=== PATIENT | female | born 1980 | race African-American/Black ===

== ENCOUNTER 2016-04-22 10:27 | Emergency (ER) | payer MEDICAID ==
[~2016-04-22] VITALS: Ht 162.6 cm; Wt 78.0 kg
[~2016-04-22 10:27] MED LIST: CLON0.1T PO; HYDR25TA5 PO; LISI-515 PO; SERO300T PO
[2016-04-22 10:30] VITALS: BP 126/79; PULSE 52; RESP 16; TEMP 97.7; O2SAT 98
[2016-04-22] MEDS ORDERED: ATEN25TA PO (11:18)
[2016-04-22] MEDS ORDERED: CLON0.2T PO (11:18)
[2016-04-22] MEDS ORDERED: AMLO10TA2 PO (11:18)
--- NOTE | 2016-04-22 11:58 | PD ---
HPI Chief Complaint: Oral / Dental Pain or Problem Time Seen by Provider: 11:58 Travel History International Travel<30 days: No Contact w/Intl Traveler<30days: No Traveled to known affect area: No History of Present Illness HPI 36-year-old female presents to the emergency department with 2 complaints. Her first complaint is left lower tooth pain 1-1/2 weeks. Denies facial edema, erythema. Denies dental trauma. Denies fever, chills, nausea, vomiting. Has tried BC powder and Motrin with no relief of pain. Pain is worse with talking. Pain is causing her to have a headache which she has history of headaches and symptoms are similar to past headaches. Her second complaint is midsternal chest pain 5 days. Chest pain is constant. Rates 8/10. Aching in nature. No change in chest pain with activity. Reports some shortness of breath but says that she has had breath "all the time." Reports shortness of breath for multiple years and used to use Spiriva back in 2008 for "upper respiratory problems." Has also been told her shortness of breath can be related to her anemia. Denies hemoptysis. Denies history of PE or DVT. Denies leg edema. Denies oral contraceptive. Denies recent travel, hospitalization, surgery. Denies family cardiac history. Denies personal cardiac history. Reports history of hypertension and currently takes medications. Smokes black and milds daily. Allergies to contrast media and Septra. Primary care provider is Dr. Becerra. She has an appointment with Dr. Becerra in May 22. History of hypertension, headaches, anemia. No other modifying factors or associated signs and symptoms. PFSH Past Medical History Asthma: Yes Blood Disorders: No Bipolar Disorder: Yes Anxiety: Yes Depression: Yes Cancer: No Cardiovascular Problems: Yes (HTN, OUT OF SCRIPTS) Chemotherapy: No COPD: Yes Diabetes: Yes (GESTATIONAL) Diminished Hearing: No Endocrine: No Gastrointestinal Disorders: No Genitourinary: No Hypertension: Yes Immune Disorder: No Musculoskeletal: No Neurologic: No Psychiatric: No Reproductive: No Respiratory: No Integumentary: Yes Radiation Therapy: No PNEUMOCCOCAL Vaccine (Year): 2 : 1 Para: 1 Past Surgical History Abdominal Surgery: Yes (UMBILICAL HERNIA REPAIR) AICD: No Arteriovenous Shunt: No Cardiac Surgery: No Section: Yes (01/26/07) Ear Surgery: No Endocrine Surgery: No Eye Surgery: No Genitourinary Surgery: No Gynecologic Surgery: No Insulin Pump: No Joint Replacement: No Neurologic Surgery: No Oral Surgery: No Pacemaker: No Thoracic Surgery: No Other Surgery: Yes (BACK;PYLONIDAL CYST) Social History Alcohol Use: Yes (OCC) Tobacco Use: Yes (OCC) Substance Use: No Allergies-Medications (Allergen,Severity, Reaction): Coded Allergies: Contrast Media (Verified Allergy, Severe, HIVES, 04/22/16) Septra (Verified Allergy, Severe, RESPIRATORY PROBLEMS, 04/22/16) Reported Meds & Prescriptions Reported Meds & Active Scripts Active Hydrochlorothiazide 25 Mg Tab 25 Mg PO DAILY Reported Amlodipine (Amlodipine Besylate) 10 Mg Tab 10 Mg PO DAILY Atenolol 25 Mg Tab 12.5 Mg PO DAILY Clonidine (Clonidine HCl) 0.2 Mg Tab 0.2 Mg PO BID Seroquel (Quetiapine Fumarate) 300 Mg Tab 300 Mg PO DAILY Review of Systems Except as stated in HPI: all other systems reviewed are Neg Physical Exam Narrative GENERAL: Well-nourished, well-developed female patient, in no acute distress; afebrile, nontoxic-appearing SKIN: Warm and dry. HEAD: Atraumatic. Normocephalic. No facial erythema or edema. No lymphadenopathy. EYES: Pupils equal and round. No scleral icterus. No injection or drainage. ENT: Mucosa pink and moist. No erythema or exudates. No uvular edema. No uvular , palatal, or tonsillar deviation. Airway patent. Nasal turbinates appear normal without nasal blood, purulent drainage or septal hematoma. EARS: Bilateral pinnae and external canals appear within normal limits. Bilateral tympanic membranes without erythema, dullness or perforation. MOUTH: Mucous membranes moist, no lesions, tongue and gums appear normal. Left lower second molar with tenderness on palpation; surrounding gingiva is without erythema, edema. No obvious abscess noted. NECK: Trachea midline. No JVD. No lymphadenopathy. CHEST: No reproducible chest wall tenderness; no crepitance or deformity. No retractions or use of accessory muscles. CARDIOVASCULAR: Regular rate and rhythm. No murmur appreciated. RESPIRATORY: No accessory muscle use. Clear to auscultation. Breath sounds equal bilaterally. GASTROINTESTINAL: Abdomen soft, non-tender, nondistended. Hepatic and splenic margins not palpable. Bowel sounds are active 4 quadrants. MUSCULOSKELETAL: No obvious deformities. No clubbing. No cyanosis. No edema. NEUROLOGICAL: Awake and alert. Oriented 3. No obvious cranial nerve deficits. Motor grossly within normal limits. Normal speech. Moves all extremities. 5/5 strength to all extremities. PSYCHIATRIC: Appropriate mood and affect; insight and judgment normal. Data Data Last Documented VS Vital Signs Date Time Temp Pulse Resp B/P Pulse Ox O2 Delivery O2 Flow Rate FiO2 04/22/16 13:30 46 16 156/88 98 Room Air 04/22/16 10:30 97.7 Orders Electrocardiogram (04/22/16 11:58) Basic Metabolic Panel (Bmp) (04/22/16 11:58) Complete Blood Count With Diff (04/22/16 11:58) Magnesium (Mg) (04/22/16 11:58) Prothrombin Time / Inr (Pt) (04/22/16 11:58) Act Partial Throm Time (Ptt) (04/22/16 11:58) Troponin I (04/22/16 11:58) Chest, Single Ap (04/22/16 11:58) Ecg Monitoring (04/22/16 11:58) Iv Access Insert/Monitor (04/22/16 11:58) Oximetry (04/22/16 11:58) Oxygen Administration (04/22/16 11:58) Aspirin Chew (Aspirin Chew) (04/22/16 12:00) Sodium Chloride 0.9% Flush (Ns Flush) (04/22/16 12:00) Ketorolac Inj (Toradol Inj) (04/22/16 13:00) Labs Laboratory Tests Test 04/22/16 13:15 White Blood Count 5.0 TH/MM3 Red Blood Count 4.18 MIL/MM3 Hemoglobin 10.1 GM/DL Hematocrit 30.1 % Mean Corpuscular Volume 72.1 FL Mean Corpuscular Hemoglobin 24.2 PG Mean Corpuscular Hemoglobin 33.5 % Concent Red Cell Distribution Width 19.8 % Platelet Count 387 TH/MM3 Mean Platelet Volume 7.4 FL Neutrophils (%) (Auto) 43.5 % Lymphocytes (%) (Auto) 43.0 % Monocytes (%) (Auto) 8.5 % Eosinophils (%) (Auto) 3.2 % Basophils (%) (Auto) 1.8 % Neutrophils # (Auto) 2.2 TH/MM3 Lymphocytes # (Auto) 2.1 TH/MM3 Monocytes # (Auto) 0.4 TH/MM3 Eosinophils # (Auto) 0.2 TH/MM3 Basophils # (Auto) 0.1 TH/MM3 CBC Comment AUTO DIFF Differential Comment AUTO DIFF CONFIRMED Prothrombin Time 10.4 SEC Prothromb Time International 0.9 RATIO Ratio Activated Partial 28.0 SEC Thromboplast Time Sodium Level 142 MEQ/L Potassium Level 3.5 MEQ/L Chloride Level 108 MEQ/L Carbon Dioxide Level 29.5 MEQ/L Anion Gap 5 MEQ/L Blood Urea Nitrogen 13 MG/DL Creatinine 0.84 MG/DL Estimat Glomerular Filtration 93 ML/MIN Rate Random Glucose 86 MG/DL Calcium Level 9.1 MG/DL Magnesium Level 2.3 MG/DL Troponin I 0.02 NG/ML [facility] Medical Decision Making Medical Screen Exam Complete: Yes Emergency Medical Condition: Yes Medical Record Reviewed: Yes Differential Diagnosis Dentalgia, dental abscess, DC, ACS, noncardiac chest pain, asthma, less likely PE Narrative Course 36-year-old female came in with 2 complaints. First complaint is dentalgia. Second complaint is chest pain. Patient placed on cardiopulmonary monitor. IV site obtained. Chest x-ray and EKG ordered. Labs ordered. 1259: Chest x-ray no acute disease. 1327: EKG was sinus bradycardia; no ST elevation or depression. 1430: CBC with anemia which is consistent with her past levels. BMP unremarkable. Troponin is 0.02; consistent with last troponin of 0.03. Discussed the patient with my attending physician, Dr. Maldonado, and he recommended to admit the patient to chest pain center. The patient will be admitted to chest pain center for further treatment and evaluation. 1432: Patient does not want to be admitted for chest pain observation and is leaving AMA. AMA: The risks of leaving against medical advice without further evaluation treatment were discussed with the patient. These risks include cardiac dysfunction, cardiac dysrhythmia, possible heart attack, possible stroke or . The patient indicated understanding of these risks and appeared to have the capacity to make this decision. Diagnosis Primary Impression: Left against medical advice Med/Other Pt SpecificInfo: Prescription(s) given Scripts Chlorhexidine Gluconate (Mouth) Liq (Peridex Liq)0.12% Soln15 Ml SWISH-SPIT BID 10 Days Ref 0 Prov:Janice Barfield 04/22/16 Ibuprofen 800 Mg Gpo793 Mg PO Q6HR PRN (PAIN) #30 TAB Ref 0 Prov:Janice Barfield 04/22/16 Amoxicillin 500 Mg Rpi523 Mg PO BID 10 Days Ref 0 Prov:Janice Barfield 04/22/16 Disposition: 07 AGAINST MEDICAL ADVICE Jnaice Barfield Apr 22, 2016 11:58
[2016-04-22] MEDS ORDERED: SODIUM CHLORIDE 0.9% FLUSH 5 ML FLUSH IVF PRN (12:00)
[2016-04-22] MEDS ORDERED: ASPIRIN 81 MG CHEW TAB PO ONE (12:00)
--- NOTE | 2016-04-22 12:56 | RADRPT ---
EXAM DATE/TIME: 04/22/2016 12:34 [facility] COMPARISON: CHEST SINGLE AP, September 02, 2015, 16:17. INDICATIONS : Tooth ache and headache. MEDICAL HISTORY : None. SURGICAL HISTORY : None. ENCOUNTER: Initial ACUITY: 3 days PAIN SCORE: 10/10 LOCATION: Bilateral chest FINDINGS: A single view of the chest demonstrates the lungs to be symmetrically aerated without evidence of mas s, infiltrate or effusion. The cardiomediastinal contours are unremarkable. Osseous structures are intact. CONCLUSION: No acute disease. Judah Clements MD FACR on April 22, 2016 at 12:54 Board Certified Radiologist. This report was verified electronically.
[2016-04-22] MEDS ORDERED: KETOROLAC TROMETHAMINE 30 MG/ML (IVP) VIAL IV PUSH ONE (13:00)
[2016-04-22 13:30] VITALS: BP 156/88; PULSE 46; RESP 16; O2SAT 98
[2016-04-22 13:33] LABS: AUTOMATED NEUTROPHIL # 2.2 TH/MM3 (1.8-7.7); BASOPHIL # 0.1 TH/MM3 (0-0.2); BASOPHIL % 1.8 % (0.0-2.0); EOSINOPHIL # 0.2 TH/MM3 (0-0.4); EOSINOPHIL % 3.2 % (0.0-4.0); HEMATOCRIT 30.1 % (35.0-46.0); LYMPHOCYTE # 2.1 TH/MM3 (1.0-4.8); MEAN CELL VOLUME 72.1 FL (80.0-100.0); MEAN CORPUSCULAR HEMOGLOBIN 24.2 PG (27.0-34.0); MEAN CORPUSCULAR HGB CONC 33.5 % (32.0-36.0); MONO % 8.5 % (0.0-8.0); NEUT % 43.5 % (16.0-70.0); PLATELET COUNT 387 TH/MM3 (150-450); RED BLOOD COUNT 4.18 MIL/MM3 (4.00-5.30); RED CELL DISTRIBUTION WIDTH 19.8 % (11.6-17.2)
[2016-04-22 13:34] LABS: HEMO FLAGS AUTO DIFF
[2016-04-22 13:47] LABS: INTERNATIONAL NORMALIZED RATIO 0.9 RATIO; PROTHROMBIN TIME - PATIENT 10.4 SEC (9.8-11.6)
[2016-04-22 13:55] LABS: BICARBONATE 29.5 MEQ/L (21.0-32.0); MAGNESIUM 2.3 MG/DL (1.5-2.5); POTASSIUM 3.5 MEQ/L (3.5-5.1)
[2016-04-22 14:12] LABS: SCAN/DIFF AUTO DIFF CONFIRMED
[2016-04-22] MEDS ORDERED: PERI0.126 SWISH-SPIT (14:49)
[2016-04-22] MEDS ORDERED: IBUP800T23 PO (14:49)
[2016-04-22] MEDS ORDERED: AMOX500C PO (14:49)
[2016-04-22 14:55] VITALS: BP 144/72
--- NOTE | 2016-04-23 16:56 | EKG ---
Date Performed: 04/22/2016 Time Performed: 13:25:40 PTAGE: 36 years EKG: SINUS BRADYCARDIA NONSPECIFIC T-WAVE ABNORMALITY Since previous tracing, no significant mil nge noted BORDERLINE ECG PREVIOUS TRACING : 09/02/2015 16.49 DOCTOR: Car Carson Interpretating Date/Time 04/23/2016 16:56:02
== END 2016-04-22 15:02 | disposition left against medical advice (07) ==
LOC: NEPB 10:27 → NEPE 15:02
DX: R07.9 Chest pain, unspecified (principal); R94.31 Abnormal electrocardiogram [ECG] [EKG]; I10 Essential (primary) hypertension; J44.9 Chronic obstructive pulmonary disease, unspecified; Z72.0 Tobacco use
CPT/HCPCS: 71010; 80048; 83735; 84484; 85025; 85610; 85730; 93005; 96374; 99285; J1885

== ENCOUNTER 2016-06-01 10:53 | Emergency (ER) | payer MEDICAID ==
[~2016-06-01] VITALS: Ht 162.6 cm; Wt 77.5 kg
[~2016-06-01 10:53] MED LIST changes: +AMLO10TA2 PO; +AMOX500C PO; +ATEN25TA PO; -CLON0.1T PO; +CLON0.2T PO; +IBUP800T23 PO; -LISI-515 PO; +PERI0.126 SWISH-SPIT
[2016-06-01 10:55] VITALS: BP 168/90; PULSE 78; RESP 15; TEMP 98.3; O2SAT 98
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
[2016-06-01] MEDS ORDERED: BUTA1CAP PO (11:13)
[2016-06-01] MEDS ORDERED: ACETAMIN 325 MG/BUTALBITAL 50 MG/CAFFEINE 40 MG TAB PO ONE (11:15)
== END 2016-06-01 12:14 | disposition home or self-care (01) ==
LOC: NETRI 10:53
DX: G44.229 Chronic tension-type headache, not intractable (principal); K08.89 Other specified disorders of teeth and supporting structures; K03.81 Cracked tooth; I10 Essential (primary) hypertension; Z72.0 Tobacco use; Z87.09 Personal history of other diseases of the respiratory system; Z86.59 Personal history of other mental and behavioral disorders; Z86.79 Personal history of other diseases of the circulatory system; Z87.2 Personal history of diseases of the skin and subcutaneous tissue
CPT/HCPCS: 99283

== ENCOUNTER 2016-07-12 10:58 | Emergency (ER) | payer MEDICAID ==
[~2016-07-12] VITALS: Ht 162.6 cm; Wt 77.5 kg
[~2016-07-12 10:58] MED LIST changes: -AMOX500C PO; +BUTA1CAP PO; -HYDR25TA5 PO; -IBUP800T23 PO; -PERI0.126 SWISH-SPIT; -SERO300T PO
[2016-07-12 11:00] VITALS: BP 170/100; PULSE 66; RESP 24; TEMP 98.5; O2SAT 99
[2016-07-12] MEDS ORDERED: SODIUM CHLOR 0.9% 1000 ML INJ 1,000 ML IV ONE (11:30)
[2016-07-12] MEDS ORDERED: SODIUM CHLORIDE 0.9% FLUSH 10 ML FLUSH IVF PRN (11:30)
[2016-07-12] MEDS ORDERED: MECLIZINE HCL 25 MG TAB PO ONE (11:30)
[2016-07-12] MEDS ORDERED: ONDANSETRON HCL 4 MG/2 ML VIAL IVP ONE (11:30)
--- NOTE | 2016-07-12 11:36 | PD ---
HPI Chief Complaint: Dizziness Time Seen by Provider: 11:32 Travel History International Travel<30 days: No Contact w/Intl Traveler<30days: No Traveled to known affect area: No History of Present Illness HPI 36-year-old female presents to the emergency department for evaluation of lower abdominal cramping, heavy menstrual cycle, dizziness that started yesterday. She states the dizziness the abdominal cramping started with her menstrual cycle started. Patient denies any headaches. No chest pain or shortness of breath. Patient states that she was working at [employer] today and felt like she might pass out, but did not. She states she was working in a very hot environment. The patient states that if she lays still, the symptoms go away. The dizziness resumes with movement and states it feels like the room is spinning around her. Patient denies any abnormal vaginal discharge and states she is not sexually active. She denies any urinary symptoms. Patient states that every time she gets her menstrual cycle, gets heavier and heavier. She states that she has used 6 pads today. She states that she has not followed up with a contour stitcher for this. She states that she has never had a blood transfusion at this point, but was borderline at one point. She does have a history of hypertension and is on clonidine, amlodipine, atenolol. She reports one episode of vomiting yesterday, none today. PFSH Past Medical History Asthma: Yes Blood Disorders: No Bipolar Disorder: Yes Anxiety: Yes Depression: Yes Cancer: No Cardiovascular Problems: Yes (HTN) Chemotherapy: No COPD: Yes Diabetes: Yes (GESTATIONAL) Patient Takes Glucophage: No Diminished Hearing: No Endocrine: No Gastrointestinal Disorders: No Genitourinary: No Hypertension: Yes Immune Disorder: No Musculoskeletal: No Neurologic: Yes Psychiatric: No Reproductive: No Respiratory: No Integumentary: Yes Migraines: Yes Radiation Therapy: No Tetanus Vaccination: < 5 Years Influenza Vaccination: No PNEUMOCCOCAL Vaccine (Year): 2 ?: Not LMP: 07/11/16 : 1 Para: 1 Past Surgical History Abdominal Surgery: Yes (UMBILICAL HERNIA REPAIR) AICD: No Arteriovenous Shunt: No Cardiac Surgery: No Section: Yes (01/26/07) Ear Surgery: No Endocrine Surgery: No Eye Surgery: No Genitourinary Surgery: No Gynecologic Surgery: No Insulin Pump: No Joint Replacement: No Neurologic Surgery: No Oral Surgery: No Pacemaker: No Thoracic Surgery: No Other Surgery: Yes (BACK;PYLONIDAL CYST) Social History Alcohol Use: Yes (OCC) Tobacco Use: No Substance Use: No Allergies-Medications (Allergen,Severity, Reaction): Coded Allergies: Contrast Media (Verified Allergy, Severe, HIVES, 07/12/16) Septra (Verified Allergy, Severe, RESPIRATORY PROBLEMS, 07/12/16) Reported Meds & Prescriptions Reported Meds & Active Scripts Active Reported Amlodipine (Amlodipine Besylate) 10 Mg Tab 10 Mg PO DAILY Atenolol 25 Mg Tab 12.5 Mg PO DAILY Clonidine (Clonidine HCl) 0.2 Mg Tab 0.2 Mg PO BID Review of Systems Except as stated in HPI: all other systems reviewed are Neg Physical Exam Narrative GENERAL: Well-nourished, well-developed female patient, ambulatory. Afebrile. SKIN: Focused skin assessment warm/dry. HEAD: Normocephalic. Atraumatic. ENT: Mucosa pink and moist. No erythema or exudates. No uvular edema. No uvular , palatal, or tonsillar deviation. Airway patent. Nasal turbinates appear normal without nasal blood, purulent drainage or septal hematoma. Bilateral tympanic membranes are clear without erythema or perforation. EYES: No scleral icterus. No injection or drainage. NECK: Supple, trachea midline. No JVD or lymphadenopathy. CARDIOVASCULAR: Regular rate and rhythm without murmurs, gallops, or rubs. RESPIRATORY: Breath sounds equal bilaterally. No accessory muscle use. Lungs sounds are clear to auscultation. GASTROINTESTINAL: Abdomen soft, non-tender, nondistended. Patient has no abdominal pain or pelvic pain to palpation. MUSCULOSKELETAL: No cyanosis, or edema. Bilateral upper and lower extremity strength 5/5. All extremities are neurovascularly intact. BACK: Nontender without obvious deformity. No CVA tenderness. NEUROLOGICAL: Awake and alert. Cranial nerves II through XII intact. Motor and sensory grossly within normal limits. Five out of 5 muscle strength in all muscle groups. Normal speech. Finger to nose is normal bilaterally. Heel-to- velasco is normal bilaterally. Data Data Last Documented VS Vital Signs Date Time Temp Pulse Resp B/P Pulse Ox O2 Delivery O2 Flow Rate FiO2 07/12/16 11:54 59 18 150/82 58 17 151/89 60 18 175/97 07/12/16 11:46 99 Room Air 5/12/17 11:00 98.5 Orders Electrocardiogram (07/12/16 11:30) Basic Metabolic Panel (Bmp) (07/12/16 11:30) Ed Urine Pregnancytest Poc (07/12/16 11:30) Complete Blood Count With Diff (07/12/16 11:30) Urinalysis - C+S If Indicated (07/12/16 11:30) Ecg Monitoring (07/12/16 11:30) Iv Access Insert/Monitor (07/12/16 11:30) Oximetry (07/12/16 11:30) Meclizine (Antivert) (07/12/16 11:30) Ondansetron Inj (Zofran Inj) (07/12/16 11:30) Sodium Chloride 0.9% Flush (Ns Flush) (07/12/16 11:30) Sodium Chlor 0.9% 1000 Ml Inj (Ns 1000 M (07/12/16 11:30) Orthostatic Vital Signs (07/12/16 11:30) Potassium Chloride (Kcl) (07/12/16 13:30) Labs Laboratory Tests Test 07/12/16 11:40 White Blood Count 5.0 TH/MM3 Red Blood Count 3.80 MIL/MM3 Hemoglobin 9.0 GM/DL Hematocrit 27.4 % Mean Corpuscular Volume 71.9 FL Mean Corpuscular Hemoglobin 23.7 PG Mean Corpuscular Hemoglobin 32.9 % Concent Red Cell Distribution Width 18.5 % Platelet Count 397 TH/MM3 Mean Platelet Volume 7.9 FL Neutrophils (%) (Auto) 50.6 % Lymphocytes (%) (Auto) 38.5 % Monocytes (%) (Auto) 7.8 % Eosinophils (%) (Auto) 1.9 % Basophils (%) (Auto) 1.2 % Neutrophils # (Auto) 2.5 TH/MM3 Lymphocytes # (Auto) 1.9 TH/MM3 Monocytes # (Auto) 0.4 TH/MM3 Eosinophils # (Auto) 0.1 TH/MM3 Basophils # (Auto) 0.1 TH/MM3 CBC Comment AUTO DIFF Differential Comment AUTO DIFF CONFIRMED Urine Color YELLOW Urine Turbidity CLEAR Urine pH 6.0 Urine Specific [place] 1.031 Urine Protein 30 mg/dL Urine Glucose (UA) NEG mg/dL Urine Ketones NEG mg/dL Urine Occult Blood MOD Urine Nitrite NEG Urine Bilirubin NEG Urine Urobilinogen 2.0 MG/DL Urine Leukocyte Esterase NEG Urine RBC /hpf Urine WBC 5 /hpf Urine Squamous Epithelial 1 /hpf Cells Urine Bacteria RARE /hpf Urine Mucus FEW /lpf Microscopic Urinalysis Comment CULT NOT INDICATED Sodium Level 140 MEQ/L Potassium Level 3.0 MEQ/L Chloride Level 105 MEQ/L Carbon Dioxide Level 25.1 MEQ/L Anion Gap 10 MEQ/L Blood Urea Nitrogen 12 MG/DL Creatinine 0.93 MG/DL Estimat Glomerular Filtration 83 ML/MIN Rate Random Glucose 87 MG/DL Calcium Level 8.7 MG/DL [facility] Medical Decision Making Medical Screen Exam Complete: Yes Emergency Medical Condition: Yes Medical Record Reviewed: Yes Differential Diagnosis Anemia versus dysmenorrhea versus electrolyte abnormality versus UTI Narrative Course 36-year-old female presents to the emergency department for evaluation of dizziness, abdominal cramping, heavy menstrual cycle that started yesterday. Patient appears well on exam. She has no abdominal or pelvic tenderness to palpation. EKG, CBC, BMP, UA, urine test are ordered and pending. Orthostatic vital signs are ordered and pending. Patient is given normal saline 1 L IV bolus, Zofran 4 mg IV, meclizine 50 mg by mouth. EKG shows sinus bradycardia, heart rate 54, no acute ST changes. CBC shows anemia with hemoglobin 9.0, hematocrit 27.4. BMP shows hypokalemia of 3.0. UA shows moderate occult blood, rare bacteria. UPT is negative. Orthostatic VS are negative for orthostatic hypotension. Upon reexamination, the patient states she feels much better. I discussed prescribing iron for her, but she states she has some at home and will take these. I instructed to take with an [id number] stool softener. She'll be discharged prescription for meclizine and Zofran. She is ambulatory without difficulty in the emergency department. Patient is return for any acute worsening of symptoms. I instructed to follow-up with a contour stitcher for increased vaginal bleeding during menstrual cycle. Diagnosis Primary Impression: Dysmenorrhea Additional Impression: Dizziness Referrals: Regulator Tester Primary Care Physician Patient Instructions: Dizziness (ED), Dysmenorrhea (ED), General Instructions Departure Forms: Tests/Procedures, Work Release Enter return to work date: July 15, 2016 Additional Instructions: Taking your iron pills. Take with a stool softener, such as Colace, over-the- counter. Take meclizine as directed as needed for dizziness. Take Zofran as instructed as needed for nausea/vomiting. Follow-up with your primary care physician and contour stitcher. Return to the emergency department for any acute worsening of symptoms. Med/Other Pt SpecificInfo: Prescription(s) given Scripts Ondansetron Odt 4 Mg Tab4 Mg SL Q6HR PRN (Nausea/Vomiting) #16 TAB Ref 0 Prov:Stefanie Austin 07/12/16 Meclizine 25 Mg Tab25 Mg PO TID PRN (VERTIGO) #16 TAB Ref 0 Prov:Stefanie Austin 07/12/16 Disposition: 01 DISCHARGE HOME Condition: Stable Stefanie Austin July 12, 2016 11:36
[2016-07-12 11:46] VITALS: RESP 17; O2SAT 99
[2016-07-12 11:54] VITALS: BP_SYST 150; BP_SYST 151; BP_SYST 175; BP_DIAS 82; BP_DIAS 89; BP_DIAS 97; RESP 17; RESP 18
[2016-07-12 12:02] LABS: AUTOMATED NEUTROPHIL # 2.5 TH/MM3 (1.8-7.7); BASOPHIL # 0.1 TH/MM3 (0-0.2); BASOPHIL % 1.2 % (0.0-2.0); EOSINOPHIL # 0.1 TH/MM3 (0-0.4); EOSINOPHIL % 1.9 % (0.0-4.0); HEMATOCRIT 27.4 % (35.0-46.0); LYMPH % 38.5 % (9.0-44.0); LYMPHOCYTE # 1.9 TH/MM3 (1.0-4.8); MEAN CELL VOLUME 71.9 FL (80.0-100.0); MEAN CORPUSCULAR HEMOGLOBIN 23.7 PG (27.0-34.0); MEAN CORPUSCULAR HGB CONC 32.9 % (32.0-36.0); MONO % 7.8 % (0.0-8.0); NEUT % 50.6 % (16.0-70.0); PLATELET COUNT 397 TH/MM3 (150-450); RED CELL DISTRIBUTION WIDTH 18.5 % (11.6-17.2)
[2016-07-12 12:04] LABS: HEMO FLAGS AUTO DIFF
[2016-07-12 12:09] LABS: BACTERIA, URINE RARE /hpf; BLOOD, URINE MOD (NEG); COMMENT (UR) CULT NOT INDICATED; CULTURE IF INDICATED CULT NOT INDICATED; GLUCOSE,URINE NEG (NEG); KETONE, URINE NEG (NEG); MUCUS URINE FEW /lpf (OCC); NITRITE,URINE NEG (NEG); SQUAMOUS EPITHELIAL CELL URINE 1 /hpf (0-5); URINE COLOR YELLOW (YELLW/STRAW)
[2016-07-12 12:26] LABS: BICARBONATE 25.1 MEQ/L (21.0-32.0)
[2016-07-12 12:45] LABS: SCAN/DIFF AUTO DIFF CONFIRMED
[2016-07-12] MEDS ORDERED: POTASSIUM CHLORIDE 20 MEQ CONTROLLED RELEASE TAB PO ONE (13:30)
[2016-07-12] MEDS ORDERED: MECL-62 PO (13:39)
[2016-07-12] MEDS ORDERED: ONDA4TAB7 SL (13:39)
[2016-07-12 13:55] VITALS: BP 168/78; TEMP 97.8
--- NOTE | 2016-07-13 13:47 | EKG ---
Date Performed: 07/12/2016 Time Performed: 11:53:08 PTAGE: 36 years EKG: SINUS BRADYCARDIA NONSPECIFIC T-WAVE ABNORMALITY Since previous tracing, no significant mil nge noted BORDERLINE ECG PREVIOUS TRACING : 04/22/2016 13.25 DOCTOR: Na Vasquez Interpretating Date/Time 07/13/2016 13:46:49
== END 2016-07-12 13:55 | disposition home or self-care (01) ==
LOC: NEPD 10:58
DX: N94.6 Dysmenorrhea, unspecified (principal); R42 Dizziness and giddiness; I10 Essential (primary) hypertension; J45.909 Unspecified asthma, uncomplicated; J44.9 Chronic obstructive pulmonary disease, unspecified
CPT/HCPCS: 80048; 81001; 84703; 85025; 93005; 96361; 96374; 99284; J2405; J7030

== ENCOUNTER 2016-08-14 17:15 | Emergency (ER) | payer MEDICAID ==
[~2016-08-14] VITALS: Ht 162.6 cm; Wt 80.0 kg
[~2016-08-14 17:15] MED LIST changes: -BUTA1CAP PO; +MECL-62 PO; +ONDA4TAB7 SL
[2016-08-14 17:16] VITALS: BP 232/107; PULSE 70; RESP 20; TEMP 98.8; O2SAT 98
[2016-08-14 18:20] VITALS: BP 200/100; PULSE 71
--- NOTE | 2016-08-14 20:28 | PD ---
HPI Chief Complaint: Lump, Cyst, Hernia Time Seen by Provider: 20:24 Travel History International Travel<30 days: No Contact w/Intl Traveler<30days: No Traveled to known affect area: No History of Present Illness HPI comes in c/o swelling to left axilla for past 2 days...denies fever, streaking or other complaint...she has had abscess before but without removal of sweat glands PFSH Past Medical History Asthma: Yes Blood Disorders: No Bipolar Disorder: Yes Anxiety: Yes Depression: Yes Cancer: No Cardiovascular Problems: Yes (HTN) Chemotherapy: No COPD: Yes Diabetes: Yes (GESTATIONAL) Diminished Hearing: No Endocrine: No Gastrointestinal Disorders: No Genitourinary: No Hypertension: Yes Immune Disorder: No Musculoskeletal: No Neurologic: Yes Psychiatric: No Reproductive: No Respiratory: No Integumentary: Yes Migraines: Yes Radiation Therapy: No PNEUMOCCOCAL Vaccine (Year): 2 ?: Not LMP: 08/14/16 : 1 Para: 1 Past Surgical History Abdominal Surgery: Yes (UMBILICAL HERNIA REPAIR) AICD: No Arteriovenous Shunt: No Cardiac Surgery: No Section: Yes (01/26/07) Ear Surgery: No Endocrine Surgery: No Eye Surgery: No Genitourinary Surgery: No Gynecologic Surgery: No Insulin Pump: No Joint Replacement: No Neurologic Surgery: No Oral Surgery: No Pacemaker: No Thoracic Surgery: No Other Surgery: Yes (BACK;PYLONIDAL CYST) Social History Alcohol Use: Yes (OCC) Tobacco Use: No Substance Use: No Allergies-Medications (Allergen,Severity, Reaction): Coded Allergies: Contrast Media (Verified Allergy, Severe, HIVES, 07/12/16) Septra (Verified Allergy, Severe, RESPIRATORY PROBLEMS, 07/12/16) Reported Meds & Prescriptions Reported Meds & Active Scripts Active Ondansetron Odt 4 Mg Tab 4 Mg SL Q6HR PRN Meclizine (Meclizine HCl) 25 Mg Tab 25 Mg PO TID PRN Reported Amlodipine (Amlodipine Besylate) 10 Mg Tab 10 Mg PO DAILY Atenolol 25 Mg Tab 12.5 Mg PO DAILY Clonidine (Clonidine HCl) 0.2 Mg Tab 0.2 Mg PO BID Review of Systems Except as stated in HPI: all other systems reviewed are Neg Skin: Positive Lumps Physical Exam Narrative GENERAL: SKIN: all normal except left axilla has indurated lump 2cm in diameter, without fluctuance, no lad, no streaking. HEAD: Atraumatic. Normocephalic. EYES: Pupils equal and round. No scleral icterus. No injection or drainage. ENT: No nasal bleeding or discharge. Mucous membranes pink and moist. NECK: Trachea midline. No JVD. CARDIOVASCULAR: Regular rate and rhythm. RESPIRATORY: No accessory muscle use. Clear to auscultation. Breath sounds equal bilaterally. GASTROINTESTINAL: Abdomen soft, non-tender, nondistended. Hepatic and splenic margins not palpable. MUSCULOSKELETAL: Extremities without clubbing, cyanosis, or edema. No obvious deformities. NEUROLOGICAL: Awake and alert. No obvious cranial nerve deficits. Motor grossly within normal limits. Five out of 5 muscle strength in the arms and legs. Normal speech. PSYCHIATRIC: Appropriate mood and affect; insight and judgment normal. Data Data Last Documented VS Vital Signs Date Time Temp Pulse Resp B/P Pulse Ox O2 Delivery O2 Flow Rate FiO2 08/14/16 18:20 71 200/100 08/14/16 17:16 98.8 20 98 Room Air Orders Doxycycline (Vibramycin) (08/14/16 20:30) MDM Medical Decision Making Medical Screen Exam Complete: Yes Emergency Medical Condition: Yes Medical Record Reviewed: Yes Differential Diagnosis early cellulitis Narrative Course after evaluation although pt has h/o hidraadenitis today pt is not presenting with this yet. will place on abx (doxy and percocet for pain) Diagnosis Primary Impression: Cellulitis Qualified Code: L03.112 - Cellulitis of left axilla Scripts Oxycodone-Acetaminophen (Percocet)10-325 mg Tab1 Tab PO Q6H PRN (PAIN) #28 TAB Ref 0 Prov:Pradip Gonzalez MD 08/14/16 Ciprofloxacin (Cipro)500 Mg Ctc023 Mg PO BID #14 TAB Ref 0 Prov:Pradip Gonzalez MD 08/14/16 Doxycycline Hyclate 100 Mg [id number] Mg PO BID #20 CAP Prov:Pradip Gonzalez MD 08/14/16 Disposition: 01 DISCHARGE HOME Condition: Stable Pradip Gonzalez MD Aug 14, 2016 20:28
[2016-08-14] MEDS ORDERED: DOXYCYCLINE HYCLATE 100 MG CAP PO ONE (20:30)
[2016-08-14] MEDS ORDERED: CIPR-9 PO (20:32)
[2016-08-14] MEDS ORDERED: DOXY100C PO (20:32)
[2016-08-14] MEDS ORDERED: PERC10TA27 PO (20:32)
[2016-08-14] MEDS ORDERED: REGL10TA5 PO (21:06)
[2016-08-14] MEDS ORDERED: ONDANSETRON ODT 4 MG TAB PO ONE (21:15)
== END 2016-08-14 21:22 | disposition home or self-care (01) ==
LOC: NEPD 17:15
DX: L03.112 Cellulitis of left axilla (principal); J45.909 Unspecified asthma, uncomplicated; I10 Essential (primary) hypertension; J44.9 Chronic obstructive pulmonary disease, unspecified
CPT/HCPCS: 99284

== ENCOUNTER 2016-11-01 21:05 | Emergency (ER) | payer MEDICAID ==
[~2016-11-01 21:05] MED LIST changes: +CIPR-9 PO; +DOXY100C PO; +PERC10TA27 PO; +REGL10TA5 PO
[2016-11-01 21:07] VITALS: BP 185/100; PULSE 65; RESP 16; TEMP 98.8; O2SAT 100
--- NOTE | 2016-11-01 23:57 | PD ---
HPI Chief Complaint: Pain: Acute or Chronic Time Seen by Provider: 23:43 Travel History International Travel<30 days: No Contact w/Intl Traveler<30days: No Traveled to known affect area: No History of Present Illness HPI 36 year old female complains of pain in the right lower molars. She complains of headache. She's had pain in the lower dentition for weeks. She's also had chronic headaches for months. Psdd-cat-[id number] analgesia has been ineffective. No frontal photophobia. No vomiting. No neck stiffness. No fever. Timing constant. Severity moderate. Onset gradual. PFSH Past Medical History Asthma: Yes Blood Disorders: No Bipolar Disorder: Yes Anxiety: Yes Depression: Yes Cancer: No Cardiovascular Problems: Yes (HTN) Chemotherapy: No COPD: Yes Diabetes: No Diminished Hearing: No Endocrine: No Gastrointestinal Disorders: No Genitourinary: No Hypertension: Yes Immune Disorder: No Musculoskeletal: No Neurologic: Yes Psychiatric: No Reproductive: No Respiratory: No Integumentary: Yes Migraines: Yes Radiation Therapy: No PNEUMOCCOCAL Vaccine (Year): 2 ?: Not : 1 Para: 1 Past Surgical History Abdominal Surgery: Yes (UMBILICAL HERNIA REPAIR) AICD: No Arteriovenous Shunt: No Cardiac Surgery: No Section: Yes (01/26/07) Ear Surgery: No Endocrine Surgery: No Eye Surgery: No Genitourinary Surgery: No Gynecologic Surgery: No Insulin Pump: No Joint Replacement: No Neurologic Surgery: No Oral Surgery: No Pacemaker: No Thoracic Surgery: No Other Surgery: Yes (BACK;PYLONIDAL CYST) Social History Alcohol Use: Yes (OCC) Tobacco Use: No Substance Use: No Allergies-Medications (Allergen,Severity, Reaction): Coded Allergies: diatrizoate meglumine (Unverified Allergy, Severe, HIVES, 11/01/16) gadobenic acid (Unverified Allergy, Severe, HIVES, 11/01/16) gadodiamide (Unverified Allergy, Severe, HIVES, 11/01/16) gadoteridol (Unverified Allergy, Severe, HIVES, 11/01/16) iodixanol (Unverified Allergy, Severe, HIVES, 11/01/16) iohexol (Unverified Allergy, Severe, HIVES, 11/01/16) sulfamethoxazole (Unverified Allergy, Severe, RESPIRATORY PROBLEMS, 11/01/16 ) trimethoprim (Unverified Allergy, Severe, RESPIRATORY PROBLEMS, 11/01/16) Reported Meds & Prescriptions Reported Meds & Active Scripts Active Penicillin V Potassium 500 Mg Tab 500 Mg PO Q8H 10 Days Percocet (Oxycodone-Acetaminophen) 5-325 mg Tab 1-2 Tab PO Q6H PRN Reported Amlodipine (Amlodipine Besylate) 10 Mg Tab 10 Mg PO DAILY Atenolol 25 Mg Tab 12.5 Mg PO DAILY Clonidine (Clonidine HCl) 0.2 Mg Tab 0.2 Mg PO BID Review of Systems Except as stated in HPI: all other systems reviewed are Neg Physical Exam Narrative GENERAL: 36-year-old female pleasant well-nourished well-developed SKIN: Warm and dry. HEAD: Atraumatic. Normocephalic. EYES: Pupils equal and round. No scleral icterus. No injection or drainage. ENT: No nasal bleeding or discharge. Mucous membranes pink and moist. NECK: Trachea midline. No JVD. CARDIOVASCULAR: Regular rate and rhythm. RESPIRATORY: No accessory muscle use. Clear to auscultation. Breath sounds equal bilaterally. GASTROINTESTINAL: Abdomen soft, non-tender, nondistended. Hepatic and splenic margins not palpable. MUSCULOSKELETAL: Extremities without clubbing, cyanosis, or edema. No obvious deformities. NEUROLOGICAL: Awake and alert. No obvious cranial nerve deficits. Motor grossly within normal limits. Five out of 5 muscle strength in the arms and legs. Normal speech. PSYCHIATRIC: Appropriate mood and affect; insight and judgment normal. Data Data Last Documented VS Vital Signs Date Time Temp Pulse Resp B/P (MAP) Pulse Ox O2 Delivery O2 Flow Rate FiO2 11/02/16 00:17 11/01/16 21:07 98.8 65 16 100 Room Air Vital signs reviewed 185/100 Orders Orders Oxycodone-Acetamin 5-325 Mg (Percocet (11/02/16 00:15) Penicillin V Potassium (Veetids) (11/02/16 00:15) Ondansetron Odt (Zofran Odt) (11/02/16 00:30) MDM Medical Decision Making Medical Screen Exam Complete: Yes Emergency Medical Condition: Yes Medical Record Reviewed: Yes Differential Diagnosis Dental caries, dental abscess, migraine, intracranial hemorrhage, meningitis, mass Narrative Course Dentalgia with migraine. Scripts as below Diagnosis Primary Impression: Chronic headaches Qualified Codes: R51 - Headache Additional Impression: Dentalgia Referrals: Dentist 2 days Additional Instructions: You have a choice when it comes to health care, and we are glad that you chose [facility]. Hopefully, we have met your expectations on today's visit. You are welcome to return to [facility] at any time, as we are committed to meeting the health care needs of our community. Med/Other Pt SpecificInfo: Prescription(s) given Scripts Penicillin V Potassium (Penicillin V Potassium) 500 Mg Tab 500 MG PO Q8H for Infection for 10 Days, TAB 0 Refills Prov: Be Phelan MD 11/02/16 Oxycodone-Acetaminophen (Percocet) 5-325 mg Tab 1-2 TAB PO Q6H Y for PAIN SCALE 6 TO 10, #14 TAB 0 Refills Prov: Be Phelan MD 11/02/16 Disposition: 01 DISCHARGE HOME Condition: Stable Be Phelan MD Nov 01, 2016 23:57
[2016-11-02] MEDS ORDERED: PERC5TAB12 PO (00:08)
[2016-11-02] MEDS ORDERED: PENICILLIN V POTASSIUM 500 MG TAB PO ONE (00:15)
[2016-11-02] MEDS ORDERED: oxyCODONE/ACETAMINOPHEN 5 MG/325 MG TAB PO ONE (00:15)
[2016-11-02] MEDS ORDERED: PENI500T PO (00:21)
[2016-11-02] MEDS ORDERED: ONDANSETRON ODT 4 MG TAB PO ONE (00:30)
== END 2016-11-02 00:37 | disposition home or self-care (01) ==
LOC: NEPE 21:05
DX: R51 Headache (principal); K08.89 Other specified disorders of teeth and supporting structures; I10 Essential (primary) hypertension; Z87.09 Personal history of other diseases of the respiratory system; Z86.59 Personal history of other mental and behavioral disorders; Z86.79 Personal history of other diseases of the circulatory system; Z86.69 Personal history of other diseases of the nervous system and sense organs; Z87.2 Personal history of diseases of the skin and subcutaneous tissue
CPT/HCPCS: 99284

== ENCOUNTER 2017-01-21 11:19 | Emergency (ER) | payer MEDICAID ==
[~2017-01-21] VITALS: Ht 162.6 cm; Wt 79.5 kg
[~2017-01-21 11:19] MED LIST changes: -CIPR-9 PO; +CLIN300C5 PO; -DOXY100C PO; +LISI2.5T3 PO; +MAGICPED SWISH-SPIT; -MECL-62 PO; -ONDA4TAB7 SL; -PERC10TA27 PO; -REGL10TA5 PO
[2017-01-21 11:20] VITALS: BP 148/80; PULSE 52; RESP 16; TEMP 98.6; O2SAT 100
--- NOTE | 2017-01-21 11:44 | PD ---
HPI Chief Complaint: dental pain Time Seen by Provider: 11:38 Travel History International Travel<30 days: No Contact w/Intl Traveler<30days: No History of Present Illness HPI 36-year-old presents emergent from with ongoing left-sided facial swelling and pain following extraction. She was seen here for dental abscess a couple weeks ago. Went to the [facility] had a tooth extracted. She still has to see an oral surgeon to have her wisdom tooth removed. Her second molar on the bottom left was removed. She finished antibiotics, clindamycin. She is on pain and swelling. No fevers. History Past Medical History Narrative Medical Hypertension PNEUMOCCOCAL Vaccine (Year): 2 : 1 Para: 1 Social History Alcohol Use: Yes (OCC) Tobacco Use: No Allergies-Medications (Allergen,Severity, Reaction): Coded Allergies: diatrizoate meglumine (Unverified Allergy, Severe, HIVES, 01/21/17) gadobenic acid (Unverified Allergy, Severe, HIVES, 01/21/17) gadodiamide (Unverified Allergy, Severe, HIVES, 01/21/17) gadoteridol (Unverified Allergy, Severe, HIVES, 01/21/17) iodixanol (Unverified Allergy, Severe, HIVES, 01/21/17) iohexol (Unverified Allergy, Severe, HIVES, 01/21/17) sulfamethoxazole (Unverified Allergy, Severe, RESPIRATORY PROBLEMS, ) trimethoprim (Unverified Allergy, Severe, RESPIRATORY PROBLEMS, 01/21/17) Reported Meds & Prescriptions Reported Meds & Active Scripts Active Reported Lisinopril 2.5 Mg Tab Unknown Dose PO DAILY Amlodipine (Amlodipine Besylate) 10 Mg Tab 10 Mg PO DAILY Atenolol 25 Mg Tab 12.5 Mg PO DAILY Clonidine (Clonidine HCl) 0.2 Mg Tab 0.2 Mg PO BID Review of Systems Except as stated in HPI: all other systems reviewed are Neg Physical Exam Narrative GENERAL: Well-appearing 36-year-old, no acute distress. SKIN: Focused skin assessment warm/dry. ENT: No nasal bleeding or discharge. Mucous membranes pink and moist. She is a little bit of facial asymmetry with barely visible swelling and fullness on the bottom left mandible. On oral exam I can see where the tooth was extracted. The wisdom tooth is still impacted in the back. She does not have any obvious abscess. Fluctuance or purulent drainage. NECK: Trachea midline. No JVD. CARDIOVASCULAR: Regular rate and rhythm. No murmur appreciated. RESPIRATORY: No accessory muscle use. Clear to auscultation. Breath sounds equal bilaterally. Data Data Last Documented VS Vital Signs Date Time Temp Pulse Resp B/P (MAP) Pulse Ox O2 Delivery O2 Flow Rate FiO2 01/21/17 11:20 98.6 52 16 148/80 (102) 100 Room Air MDM Medical Decision Making Medical Screen Exam Complete: Yes Emergency Medical Condition: Yes Differential Diagnosis Infection, inflammation, abscess, other Narrative Course Medical decision-making new para 36-year-old was some residual pain and tenderness and minimal swelling on her jaw. Think this is inflammation from her dental extraction. I don't appreciate any residual abscess. We will have her return if she has any worsening pain fevers or swelling. Outpatient follow- up with dental surgery as planned. Diagnosis Primary Impression: Dentalgia Patient Instructions: General Instructions Additional Instructions: Take steroids and antibiotics as prescribed. Use acetaminophen 1 g 3 times daily as needed for pain. Return to the emergency department if you have any worsening facial swelling, fevers, or any other new or worsening symptoms. Follow-up with an oral surgeon as planned for extraction of your wisdom tooth. Med/Other Pt SpecificInfo: Prescription(s) given Scripts Prednisone (Deltasone) 20 Mg Tab 20 MG PO BID, #10 TAB 0 Refills Prov: Peng Baxter MD 01/21/17 Penicillin V Potassium (Penicillin V Potassium) 500 Mg Tab 500 MG PO Q8H for Infection for 7 Days, #21 TAB 0 Refills Prov: Peng Baxter MD 01/21/17 Disposition: 01 DISCHARGE HOME Condition: Stable Peng Baxter MD Jan 21, 2017 11:44
[2017-01-21] MEDS ORDERED: PRED-503 PO (11:47)
[2017-01-21] MEDS ORDERED: PENI500T PO (11:47)
== END 2017-01-21 12:04 | disposition home or self-care (01) ==
LOC: NEPK 11:19
DX: K08.89 Other specified disorders of teeth and supporting structures (principal); I10 Essential (primary) hypertension; Z79.899 Other long term (current) drug therapy; Z88.8 Allergy status to other drugs, medicaments and biological substances; Z88.2 Allergy status to sulfonamides
CPT/HCPCS: 99284

== ENCOUNTER 2017-04-06 18:49 | Emergency (ER) | payer MEDICAID ==
[~2017-04-06] VITALS: Ht 160 cm; Wt 81.0 kg
[~2017-04-06 18:49] MED LIST changes: -CLIN300C5 PO; -MAGICPED SWISH-SPIT; +PENI500T PO; +PRED-503 PO
[2017-04-06 19:01] VITALS: BP 177/112; PULSE 78; RESP 19; TEMP 98.6; O2SAT 100
[2017-04-06] MEDS ORDERED: PENI500T PO (20:24)
--- NOTE | 2017-04-06 20:24 | PD ---
HPI Chief Complaint: Oral / Dental Pain or Problem Time Seen by Provider: 20:07 Travel History International Travel<30 days: No Contact w/Intl Traveler<30days: No Traveled to known affect area: No History of Present Illness HPI This is a 36-year-old female here with left lower molar pain 3 days. He reports pain at the site of a cracked molar. Symptom severity is moderate. By eating, drinking, showing. Unrelieved by OTC Tylenol. PFSH Past Medical History Asthma: Yes Blood Disorders: No Bipolar Disorder: Yes Anxiety: Yes Depression: Yes Cancer: No Cardiovascular Problems: Yes Chemotherapy: No COPD: Yes Diabetes: No Diminished Hearing: No Endocrine: No Gastrointestinal Disorders: No Genitourinary: No Hypertension: Yes Immune Disorder: No Musculoskeletal: No Neurologic: Yes Psychiatric: No Reproductive: No Respiratory: No Integumentary: Yes Immunizations Current: Yes Migraines: Yes Radiation Therapy: No Tetanus Vaccination: < 5 Years Influenza Vaccination: No PNEUMOCCOCAL Vaccine (Year): 2 ?: Not LMP: 2-4-18 : 1 Para: 1 Past Surgical History Abdominal Surgery: Yes (UMBILICAL HERNIA REPAIR) AICD: No Arteriovenous Shunt: No Cardiac Surgery: No Section: Yes (01/26/07) Ear Surgery: No Endocrine Surgery: No Eye Surgery: No Genitourinary Surgery: No Gynecologic Surgery: No Insulin Pump: No Joint Replacement: No Neurologic Surgery: No Oral Surgery: No Pacemaker: No Thoracic Surgery: No Other Surgery: Yes (BACK;PYLONIDAL CYST) Social History Alcohol Use: Yes (OCC) Tobacco Use: Yes (OCC) Substance Use: No Allergies-Medications (Allergen,Severity, Reaction): Coded Allergies: diatrizoate meglumine (Unverified Allergy, Severe, HIVES, 04/06/17) gadobenic acid (Unverified Allergy, Severe, HIVES, 04/06/17) gadodiamide (Unverified Allergy, Severe, HIVES, 04/06/17) gadoteridol (Unverified Allergy, Severe, HIVES, 04/06/17) iodixanol (Unverified Allergy, Severe, HIVES, 04/06/17) iohexol (Unverified Allergy, Severe, HIVES, 04/06/17) sulfamethoxazole (Unverified Allergy, Severe, RESPIRATORY PROBLEMS, 04/06/17 ) trimethoprim (Unverified Allergy, Severe, RESPIRATORY PROBLEMS, 04/06/17) Reported Meds & Prescriptions Reported Meds & Active Scripts Active Reported Lisinopril 2.5 Mg Tab Unknown Dose PO DAILY Amlodipine (Amlodipine Besylate) 10 Mg Tab 10 Mg PO DAILY Atenolol 25 Mg Tab 12.5 Mg PO DAILY Clonidine (Clonidine HCl) 0.2 Mg Tab 0.2 Mg PO BID Review of Systems Except as stated in HPI: all other systems reviewed are Neg General / Constitutional: No: Fever Eyes: No: Visual changes HENT: No: Headaches Cardiovascular: No: Chest Pain or Discomfort Physical Exam Narrative GENERAL: Alert and well-appearing 36-year-old female SKIN: Warm and dry. HEAD: Normocephalic. EYES: No injection or drainage. MOUTH: Decayed and fractured left lower molar with surrounding gum erythema and tenderness. NECK: Supple. Data Data Last Documented VS Vital Signs Date Time Temp Pulse Resp B/P (MAP) Pulse Ox O2 Delivery O2 Flow Rate FiO2 04/06/17 19:01 98.6 78 19 177/112 (133) 100 MDM Medical Decision Making Medical Screen Exam Complete: Yes Emergency Medical Condition: Yes Differential Diagnosis Dental fracture, dental abscess, dentalgia Narrative Course 36-year-old female here with left lower dental pain at the site of a cracked molar. She has gum erythema and swelling surrounding the tooth. She is nontoxic-appearing. Patient be treated with Pen-Vee K Diagnosis Primary Impression: Dental infection Referrals: Dentist Additional Instructions: Follow-up with dentist. [id number] ibuprofen 800 mg every 6 hours as needed for pain Scripts Penicillin V Potassium (Penicillin V Potassium) 500 Mg Tab 500 MG PO Q6H for Infection for 7 Days, #28 TAB 0 Refills Prov: Radha Avila 04/06/17 Disposition: 01 DISCHARGE HOME Condition: Stable Radha Avila Apr 06, 2017 20:24
== END 2017-04-06 20:40 | disposition home or self-care (01) ==
LOC: PHEFT 18:49
DX: K04.7 Periapical abscess without sinus (principal); J45.909 Unspecified asthma, uncomplicated; F31.9 Bipolar disorder, unspecified; F41.9 Anxiety disorder, unspecified; J44.9 Chronic obstructive pulmonary disease, unspecified; I10 Essential (primary) hypertension; Z72.0 Tobacco use; Z79.899 Other long term (current) drug therapy; Z88.2 Allergy status to sulfonamides
CPT/HCPCS: 99283